=== PATIENT | female | born 1945 | race Caucasian/White ===

== ENCOUNTER 2017-02-15 10:15 | Day surgery (SDC) | payer MEDICARE ==
[2017-02-14 14:12] VITALS: BMI 27.8
[~2017-02-15 10:15] MED LIST: LACTATED RINGERS 1,000 ML IV SCH
[2017-02-15 10:38] VITALS: TEMP 96.3
[2017-02-15] MEDS ORDERED: LIDOCAINE 1% 20 ML VIAL (10MG/ML) FOR IV START INTRADERMA ONE (10:44)
[2017-02-15] MEDS ORDERED: PROPOFOL 10 MG/ML 20 ML VIAL IV ONE (11:41)
--- NOTE | 2017-02-15 12:00 | P.PCN ---
Date of Procedure: 02/15/17 Procedure(s) Performed: BRIEF HISTORY: Patient is a 71-year-old [place] 8 female, scheduled for an elective colonoscopy as a part of evaluation of prior history of colon polyps. She underwent partial colectomy. for flat polyps once she was living in [place] 10 years ago. PROCEDURE PERFORMED: Colonoscopy. PREOPERATIVE DIAGNOSIS: History of colon polyps. IV sedation per Anesthesia. PROCEDURE: After informed consent was obtained, the patient, was brought into the endoscopy unit. IV sedation was administered by Anesthesia under continuous monitoring. Digital rectal examination was normal. Initially the Olympus CF- 160 flexible video colonoscope was then inserted in the rectum, gradually advanced into the right colon with ileocolonic anastomosis was visualized and appeared normal. Prep was excellent. Mucosa of ascending colon, transverse colon, descending colon, sigmoid colon, and rectum appeared normal. Moderate left sided diverticulosis seen. Retroflexion was performed in the rectum and no lesions were seen. The patient tolerated the procedure well. IMPRESSION: Normal-appearing colon from rectum to right colon where ileum colon anastomosis was visualized and appeared normal Moderate left-sided diverticulosis RECOMMENDATIONS: Findings of this examination were discussed with the patient as well as a family. She was advised to have a repeat surveillance colonoscopy in 5 years from now because of the prior history of colon polyps.
[2017-02-15 12:10] VITALS: RESP 18
[2017-02-15 12:45] VITALS: BP 149/73; PULSE 57
== END 2017-02-15 13:00 | disposition home or self-care (01) ==
LOC: ORWHC2ENDO 10:15
PROVIDERS: ATTEND Internal Medicine Gastroenterology
DX: Z12.11 Encounter for screening for malignant neoplasm of colon (principal); Z86.010 Personal history of colon polyps; K57.30 Diverticulosis of large intestine without perforation or abscess without bleeding; I10 Essential (primary) hypertension; I47.1 Supraventricular tachycardia; J45.909 Unspecified asthma, uncomplicated; Z98.0 Intestinal bypass and anastomosis status; Z90.49 Acquired absence of other specified parts of digestive tract; Z87.442 Personal history of urinary calculi; Z79.51 Long term (current) use of inhaled steroids; Z79.899 Other long term (current) drug therapy; Z88.5 Allergy status to narcotic agent; Z88.2 Allergy status to sulfonamides
CPT/HCPCS: J2704; G0105

== ENCOUNTER 2021-01-20 20:10 | Emergency (ER) | payer MEDICARE ==
[2021-01-20 20:23] VITALS: TEMP 98.2
[2021-01-20] MEDS ORDERED: MORPHINE SULFATE 4 MG/ML SYRINGE IV STA ×2 (21:14→23:29)
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
[2021-01-20 21:36] LABS: Anisocytosis Slight; Basophils % (A) 0 %; Eosinophils # (A) 0.2 k/uL (0-0.7); Eosinophils % (A) 2 %; HGB 12.4 gm/dL (11.4-16.0); Hypochromasia Moderate; Lymphocytes # (A) 1.5 k/uL (1.0-4.8); Lymphocytes % (A) 15 %; MCH 31.4 pg (25.0-35.0); MCHC 32.7 g/dL (31.0-37.0); MCV 95.9 fL (80.0-100.0); Macrocytosis Slight; Mean Platelet Volume 9.3; Monocytes # (A) 0.7 k/uL (0-1.0); Monocytes % (A) 7 %; Neutrophils # (A) 7.3 k/uL (1.3-7.7); Neutrophils % (A) 73 %; Platelet Count 154 k/uL (150-450); Poikilocytosis Moderate; RBC 3.96 m/uL (3.80-5.40); RDW 16.9 % (11.5-15.5)
[2021-01-20 21:46] LABS: ALT 15 U/L (4-34); African American GFR (CKD) >90 (>60 ml/min/1.73 sqM); Anion Gap 6 mmol/L; Blood Urea Nitrogen 24 mg/dL (7-17); Calcium 8.5 mg/dL (8.4-10.2); Carbon Dioxide 24 mmol/L (22-30); Chloride 104 mmol/L (98-107); Glucose 114 mg/dL (74-99); Non-African American GFR(CKD) >90 (>60 ml/min/1.73 sqM); Sodium 134 mmol/L (137-145); Total Bilirubin 0.5 mg/dL (0.2-1.3)
[2021-01-20 21:48] LABS: AST 37 U/L (14-36); Albumin 3.5 g/dL (3.5-5.0); Alkaline Phosphatase 42 U/L (38-126); Potassium 4.5 mmol/L (3.5-5.1); Total Protein 6.3 g/dL (6.3-8.2)
[2021-01-20 21:51] LABS: Prothrombin Time 10.6 sec (9.0-12.0)
--- NOTE | 2021-01-20 22:33 | CT ---
EXAMINATION TYPE: CT brain wo con DATE OF EXAM: 01/20/2021 COMPARISON: 3 views HISTORY: fall, head LAC CT DLP: 1032 mGycm Automated exposure control for dose reduction was used. There is cerebral cortical atrophy. There is no mass effect nor midline shift. There is no sign of in tracranial hemorrhage. The calvarium is intact. There is normal aeration of the mastoid sinuses. IMPRESSION: Cerebral atrophy. No acute intracranial abnormality.
--- NOTE | 2021-01-20 22:35 | XR ---
EXAMINATION TYPE: XR forearm RT DATE OF EXAM: 01/20/2021 COMPARISON: NONE HISTORY: Fall. Pain TECHNIQUE: 2 views FINDINGS: There is evidence of acute nondisplaced fracture ulnar styloid process. Distal radius is in tact. There is supracondylar fracture distal humerus. There is no dislocation. IMPRESSION: Acute fractures of the ulnar styloid process and the supracondylar distal humerus.
--- NOTE | 2021-01-20 22:36 | XR ---
EXAMINATION TYPE: XR humerus RT DATE OF EXAM: 01/20/2021 COMPARISON: NONE HISTORY: Pain. Fall. TECHNIQUE: 2 view FINDINGS: Exam is limited. There is comminuted supracondylar fracture of the distal humerus. There is anterior displacement of 1.5 cm of the distal major fragment. The shoulder joint appears anatomic. IMPRESSION: Displaced comminuted supracondylar fracture distal humerus.
--- NOTE | 2021-01-20 22:37 | XR ---
EXAMINATION TYPE: XR chest 1V portable DATE OF EXAM: 01/20/2021 COMPARISON: NONE HISTORY: Pain TECHNIQUE: Single view FINDINGS: There is no heart failure nor confluent pneumonic infiltrate. There is some linear density left lower lobe. Heart size is normal. There are no hilar masses. Thoracic aorta is atheromatous. IMPRESSION: Fibrotic changes and subsegmental atelectasis left lower lobe. No heart failure.
[2021-01-20 23:31] VITALS: RESP 16
[2021-01-21] MEDS ORDERED: LIDOCAINE 1% INJ 10MG/ML (20 ML MDV) SQ ONE (00:22)
[2021-01-21] MEDS ORDERED: MORPHINE SULFATE 4 MG/ML SYRINGE IVP STA (00:50)
[2021-01-21 01:13] VITALS: BP 122/60; PULSE 62
== END 2021-01-21 01:15 | disposition other institution (70) ==
LOC: EC 20:10
DX: S42.411A Displaced simple supracondylar fracture without intercondylar fracture of right humerus, initial encounter for closed fracture (principal); S01.81XA Laceration without foreign body of other part of head, initial encounter; I10 Essential (primary) hypertension; J45.909 Unspecified asthma, uncomplicated; Z79.51 Long term (current) use of inhaled steroids; Z79.899 Other long term (current) drug therapy; Z88.2 Allergy status to sulfonamides; V03.90XA Pedestrian on foot injured in collision with car, pick-up truck or van, unspecified whether traffic or nontraffic accident, initial encounter; Y92.481 Parking lot as the place of occurrence of the external cause
CPT/HCPCS: 96374; 96376 ×2; 99285; 29125; 93005; 80053; 84484; 85025; 85610; 85730; 87635; 73060; 73090; 71045; 70450; 12013; J2270 ×2; J2001; 36415

== ENCOUNTER → 2021-12-15 | Outpatient (CLI) | payer MEDICARE ==
--- NOTE | 2021-12-15 11:24 | MM ---
Reason for Exam: Additional evaluation requested from prior study. Last mammogram was performed 6 year(s) and 3 month(s) ago. Patient History: Menarche at age 14. First Full-Term at age 27. Left ovary removed at age 55. Right ovary removed at age 55. Postmenopausal. Mother had breast cancer, age 90. Risk Values: Hali 5 year model risk: 3.2%. NCI Lifetime model risk: 6.4%. Tissue Density: There are scattered fibroglandular densities. Findings: Analyzed By CAD. There is oval circumscribed 5 x 3 mm lesion in the middle depth slightly upper inner aspect right breast. Overall Assessment: Incomplete: need additional imaging evaluation, BI-RAD 0 Management: Diagnostic Breast Ultrasound of the right breast. Targeted ultrasound right breast. Results were given to the patient verbally at the time of exam. Electronically signed and approved by: Suhas Jean Baptiste M.D.
--- NOTE | 2021-12-15 12:57 | USB ---
Reason for Exam: Additional evaluation requested from abnormal screening. Patient History: Menarche at age 14. First Full-Term at age 27. Left ovary removed at age 55. Right ovary removed at age 55. Postmenopausal. Mother had breast cancer, age 90. Risk Values: Hali 5 year model risk: 3.2%. NCI Lifetime model risk: 6.4%. Technique: Method: Targeted. Findings: The upper inner quadrant of the right breast, the axilla of the right breast and the retroareolar of the right breast were scanned. No solid or cystic masses are identified.. Overall Assessment: Probably benign, BI-RAD 3 Management: Diagnostic Mammogram of the right breast in 6 months. A clinical breast exam by your physician is recommended on an annual basis and results should be correlated with mammographic findings. Electronically signed and approved by: Suhas Jean Baptiste M.D.
== END | disposition home or self-care (01) ==
LOC: RADMAMWWP 10:06
PROVIDERS: ATTEND Family Medicine
DX: R92.8 Other abnormal and inconclusive findings on diagnostic imaging of breast (principal); Z78.0 Asymptomatic menopausal state; Z80.3 Family history of malignant neoplasm of breast
CPT/HCPCS: 77066; 76642; G0279; 77062

== ENCOUNTER → 2022-11-22 | Outpatient (CLI) | payer MEDICARE ==
--- NOTE | 2022-11-22 13:46 | US ---
EXAMINATION TYPE: US pelvis complete transvag DATE OF EXAM: 11/22/2022 COMPARISON: NONE CLINICAL INDICATION: Female, 77 years old with history of R10.2 PELVIC AND PERINEAL PAIN; TECHNIQUE: Transvaginal (TV) and Transabdominal (TA) . Date of LMP: POST MENOPAUSAL, no HRT. EXAM MEASUREMENTS: Uterus: 5.0 x 2.7 x 4.2 cm Endometrial Stripe: 0.4 cm Right Ovary: Surgically absent Left Ovary: Surgically absent 1. Uterus: Anteverted and otherwise wnl. Tiny 3 mm cervical nabothian cyst. 2. Endometrium: wnl 3. Right Ovary: Surgically absent 4. Left Ovary: Surgically absent 5. Bilateral Adnexa: wnl 6. Posterior cul-de-sac: no free fluid IMPRESSION: 1. Thin endometrial stripe at 4 mm. 2. Status post bilateral oophorectomies. 3. No pelvic free fluid.
== END | disposition home or self-care (01) ==
LOC: RADUSWWP 12:49
PROVIDERS: ATTEND Family Medicine
DX: N85.8 Other specified noninflammatory disorders of uterus (principal); R10.2 Pelvic and perineal pain; Z90.722 Acquired absence of ovaries, bilateral
CPT/HCPCS: 76830; 76856

== ENCOUNTER → 2023-11-08 | Outpatient (CLI) | payer MEDICARE ==
--- NOTE | 2023-11-08 18:57 | MM ---
Reason for Exam: Screening (asymptomatic). Last mammogram was performed 1 year(s) and 11 month(s) ago. Patient History: Menarche at age 14. First Full-Term at age 27. Left ovary removed at age 55. Right ovary removed at age 55. Postmenopausal. Patient has history of breast feeding. Mother had breast cancer, age 90. Risk Values: Hali 5 year model risk: 3.1%. NCI Lifetime model risk: 5.5%. Prior Study Comparison: 09/05/2016 Bilateral MG screening mammo w CAD - 2, [facility]. 04/29/2019 Bilateral MG 3D screening mammo w/cad, [facility]. 05/19/2020 Bilateral MG 3D screening mammo w/cad, [facility]. 12/15/2021 Bilateral MG 3D diag mammo w/cad [facility], [facility]. Tissue Density: There are scattered areas of fibroglandular density. Findings: Analyzed By CAD. Chronic nodularity on the right. There is no suspicious group of microcalcifications or new suspicious mass in either breast. Overall Assessment: Benign, BI-RAD 2 Management: Screening Mammogram of both breasts in 1 year. . Patient should continue monthly self-breast exams. A clinical breast exam by your physician is recommended on an annual basis. This exam should not preclude additional follow-up of suspicious palpable abnormalities. Note on Hali scores and lifetime risk: 1. A Hali score greater than 3% is considered moderate risk. If this is the case, consider specialist referral to assess eligibility for a risk reducing agent. 2. If overall lifetime risk for the development of breast cancer is 20% or higher, the patient may qualify for future screening with alternating mammogram and breast MRI. Electronically signed and approved by: Hermelinda Crisostomo M.D. Radiologist
== END | disposition home or self-care (01) ==
LOC: RADMAMWWP 08:50
PROVIDERS: ATTEND Family Medicine
DX: Z12.31 Encounter for screening mammogram for malignant neoplasm of breast (principal); Z78.0 Asymptomatic menopausal state; Z80.3 Family history of malignant neoplasm of breast
CPT/HCPCS: 77063; 77067